=== PATIENT | female | born 1970 | race Caucasian/White ===

== ENCOUNTER 2018-06-16 21:53 | Emergency (ER) | payer OTHER ==
[~2018-06-16] VITALS: Wt 77.7 kg
[~2018-06-16 21:53] MED LIST: [UNRECOGNIZED DRUG - REMARK]
[2018-06-16 21:57] VITALS: BP 101/56; PULSE 97; RESP 18
[2018-06-16] MEDS ORDERED: ALBU18HF INHALATION (22:10)
--- NOTE | 2018-06-17 02:12 | ERD ---
ER Documentation Chief Complaint Chief Complaint ASTHMA EXACERBATION X'S 1 DAY HPI 47-year-old female presents for asthma exacerbation times 1 day. She states that she ran out of her home medication of Ventolin. She states that she was feeling short of breath and wheezing while she was at home however she states t hat the way to the ER she was exposed to the cold air and her symptoms improved. Patient states that she just needs a prescription for her Ventolin since she is not able to get a prescription from her primary care physician due to the holiday closure. Denies fevers or chills. Denies chest pain. Denies abdominal pain, nausea, vomiting. ROS All systems reviewed and are negative except as per history of present illness. Medications Home Meds Active Scripts Albuterol Sulfate* (Ventolin HFA*) 18 Gm Hfa.aer.ad, 2 PUFF INHALATION Q4H, #1 INHALER 1 Refill Prov:HEBERT INGRAM DO 06/16/18 Reported Medications [Meds For Allergies] No Conflict Check 07/01/09 Allergies Allergies: Coded Allergies: No Known Allergies (Verified Allergy, Mild, 07/01/09) PMhx/Soc Medical and Surgical Hx: pt denies Surgical Hx History of Surgery: No Hx Neurological Disorder: No Hx Respiratory Disorders: No Hx Cardiac Disorders: No Hx Miscellaneous Medical Probl: Yes (SEASONAL ALLERGIES) Hx Alcohol Use: No Hx Substance Use: No Hx Tobacco Use: No Smoking Status: Never smoker Physical Exam Vitals Vital Signs Date Temp Pulse Resp B/P (MAP) Pulse Ox O2 O2 Flow FiO2 Time Delivery Rate 06/16/18 97.4 97 18 101/56 97 21:57 (71) Physical Exam Const: No acute distress Head: Atraumatic Eyes: Normal Conjunctiva ENT: Normal External Ears, Nose and Mouth. Tonsillar exudates or swelling noted. Neck: Full range of motion. No meningismus. Resp: Clear to auscultation bilaterally, mild wheezing diffusely noted. Cardio: Regular rate and rhythm, no murmurs Skin: No petechiae or rashes Ext: No cyanosis, or edema Neur: Awake and alert Psych: Normal Mood and Affect Procedures/MDM Medical Decision Making: Differential diagnosis includes but not limited to upper respiratory infection, pneumonia, sepsis, asthma exacerbation Patient appeared well on physical examination, nontoxic appearing. There is low suspicion for pneumonia, sepsis Patient likely has an upper respiratory infection, likely viral which is probably the cause of her asthma exacerbation. Discussed symptomatic treatment with patient's mother who agrees with plan. There was mild wheezing on lung examination. I offered to give the patient a nebulizer treatment however she stated that she only wanted a prescription for Ventolin. Patient did look comfortable by the time she presented to the ER. There is no tachypnea noted. Patient was speaking in full sentences. Patient was given a prescription for Ventolin. She is advised to take the medication around the clock for the next 24-48 hours until her symptoms improve. Patient advised to follow up with PCP in 1-2 days. Patient advised to return to ED for new or worsening symptoms. Patient stable on discharge from the ED. Disclaimer: Inadvertent spelling and grammatical errors are likely due to EHR/dictation software use and do not reflect on the overall quality of patient care. Also, please note that the electronic time recorded on this note does not necessarily reflect the actual time of the patient encounter. Departure Diagnosis: Primary Impression: Asthma with acute exacerbation Condition: Fair Patient Instructions: Asthma Medications, Asthma, Acute (Adult) Referrals: [facility] YOU HAVE RECEIVED A MEDICAL SCREENING EXAM AND THE RESULTS INDICATE THAT YOU DO NOT HAVE A CONDITION THAT REQUIRES URGENT TREATMENT IN THE EMERGENCY DEPARTMENT. FURTHER EVALUATION AND TREATMENT OF YOUR CONDITION CAN WAIT UNTIL YOU ARE SEEN IN YOUR DOCTORS OFFICE WITHIN THE NEXT 1-2 DAYS. IT IS YOUR RESPONSIBILITY TO MAKE AN APPOINTMENT FOR FOLOW-UP CARE. IF YOU HAVE A PRIMARY DOCTOR --you should call your primary doctor and schedule an appointment IF YOU DO NOT HAVE A PRIMARY DOCTOR YOU CAN CALL OUR PHYSICIAN REFERRAL HOTLINE AT IF YOU CAN NOT AFFORD TO SEE A PHYSICIAN YOU CAN CHOSE FROM THE FOLLOWING [facility] [address] [facility] [address] [facility] [facility] [address] [facility] [address] [facility] [address] [facility] [facility]. [address] Additional Instructions: Llame al doctor MAANA y germania micha MARISA PARA DENTRO DE 1-2 CARLOS.Dgale a la secretaria que nosotros le instruimos hacer esta marisa.Avise o llame si saldivar condic in se empeora antes de la marisa. Regresa aqui si peor o no mejor. HEBERT INGRAM DO Jun 17, 2018 02:12
== END 2018-06-16 22:35 | disposition home or self-care (01) ==
LOC: FTE 21:53
DX: J45.901 Unspecified asthma with (acute) exacerbation (principal)
CPT/HCPCS: 99283